=== PATIENT | female | born 1995 | race Caucasian/White ===

== ENCOUNTER 2024-04-23 22:59 | Emergency (ER) | payer BC, MEDICAID ==
[~2024-04-23] VITALS: Ht 154.9 cm; Wt 81.6 kg
[2024-04-23 23:10] VITALS: BP_SYST 114; PULSE 73; PULSE 86; RESP 19; RESP 20; TEMP 97; O2SAT 99
[2024-04-24 01:01] LABS: COVID19 ANTIGEN SOFIA FIA NEGATIVE (NEGATIVE)
[2024-04-24 01:03] LABS: INFLUENZA TYPE A Negative (NEGATIVE); INFLUENZA TYPE B NEGATIVE (NEGATIVE)
== END 2024-04-24 01:41 | disposition left against medical advice (07) ==
LOC: SED 22:59
DX: R06.02 Shortness of breath (principal); R20.2 Paresthesia of skin; R00.0 Tachycardia, unspecified; Z20.822 Contact with and (suspected) exposure to COVID-19
CPT/HCPCS: 36415; 71046; 93005; 99285